=== PATIENT | female | born 1960 | race Caucasian/White ===

== ENCOUNTER 2018-09-05 13:31 | Emergency (ER) | payer SELFPAY ==
[~2018-09-05] VITALS: Ht 162.6 cm; Wt 70.0 kg
[2018-09-05 13:48] VITALS: Ht 162.6 cm; Wt 70.0 kg
[2018-09-05] MEDS ORDERED: ONDANSETRON 4 MG INJ IV STA (13:55)
[2018-09-05] MEDS ORDERED: MECLIZINE 12.5 MG TAB PO ONE ×2 (14:00→17:00)
[2018-09-05] MEDS ORDERED: SOD CHLORIDE 0.9% 1,000 ML IV STA (14:07)
--- NOTE | 2018-09-05 14:36 | ERD ---
ER Documentation Chief Complaint Chief Complaint BIB RA FOR EVAL OF N/V STARTED THIS AM. HPI This is a 57-year-old female who is here for vertigo and nausea vomiting. The patient states she had multiple episodes of this in the past. She states typically she gets very stressed out and then she will start getting vertigo with nausea vomiting. Denies any headache or focal neurological complaints. She says that she opens her eyes or moves her head it will induce a spinning sensation. No recent illness fever chest pain shortness of breath ROS All systems reviewed and are negative except as per history of present illness. Medications Home Meds Active Scripts Meclizine Hcl* (Antivert*) 12.5 Mg Tab, 25 MG PO Q6H PRN for DIZZINESS, #20 TAB Prov:JERSEY MATHUR DO 09/05/18 Allergies Allergies: Coded Allergies: No Known Allergy (Unverified , 09/05/18) PMhx/Soc Medical and Surgical Hx: pt denies Medical Hx, pt denies Surgical Hx Hx Alcohol Use: No Hx Substance Use: No Hx Tobacco Use: No Smoking Status: Never smoker FmHx Family History: No coronary disease Physical Exam Vitals Vital Signs Date Temp Pulse Resp B/P (MAP) Pulse Ox O2 O2 Flow FiO2 Time Delivery Rate 09/05/18 75 19 129/71 99 Room Air 16:00 (90) 09/05/18 97.3 77 16 133/84 99 13:48 (100) Physical Exam Const: Well-developed, well-nourished Head: Atraumatic, normocephalic Eyes: Normal Conjunctiva, PERRLA, EOMI, normal sclera, no nystagmus ENT: Normal External Ears, Nose and Mouth, moist mucus membranes. Neck: Full range of motion. No meningismus, no lymphadenopathy. Resp: Clear to auscultation bilaterally, no wheezing, rhonchi, rales Cardio: Regular rate and rhythm, no murmurs, S1 S2 present Abd: Soft, non tender x 4, non distended. Normal bowel sounds, no g uarding or rebound, no pulsitile abdominal masses or bruits Skin: No petechiae or rashes, no ecchymosis , no maculopapular rash Back: No midline or flank tenderness Ext: No cyanosis, or edema, FROM x 4, normal inspection, neurovascular ly intact x 4 Neur: Awake and alert, STR 5/5 x 4, sensation intact x 4, no focal findings, cerebellum intact, any movement of the head will induce severe vertigo Psych: Normal Mood and Affect Results 24 hrs Current Medications Medications Dose Sig/Steff Start Time Status Last (Trade) Ordered Route PRN Stop Time Admin Dose Reason Admin Ondansetron 4 mg ONCE STAT 09/05/18 DC 09/05/18 HCl (Zofran IV 13:55 09/05/18 14:05 Inj) 13:56 Meclizine 25 mg ONCE ONCE 09/05/18 DC 09/05/18 HCl PO 14:00 09/05/18 14:05 (Antivert) 14:01 Sodium 1,000 ml @ Q1H STAT 09/05/18 DC 09/05/18 Chloride 1,000 mls/hr IV 14:07 09/05/18 14:11 15:06 Diazepam 5 mg ONCE ONCE 09/05/18 DC 09/05/18 (Valium) IV 15:00 09/05/18 14:40 15:01 5 mg ONCE ONCE 09/05/18 DC 09/05/18 Metoclopramid IV 15:00 09/05/18 14:40 e HCl 15:01 (Reglan) Meclizine 25 mg ONCE ONCE 09/05/18 DC 09/05/18 HCl PO 17:00 09/05/18 17:10 (Antivert) 17:01 Diazepam 5 mg ONCE ONCE 09/05/18 DC 09/05/18 (Valium) IV 17:00 09/05/18 17:10 17:01 Procedures/MDM Ordering MD: JERSEY MATHUR DO Location: E/R Room/Bed: PROCEDURE: CT Brain without contrast CLINICAL INDICATION: Vertigo TECHNIQUE: A CT of the brain was performed on multidetector high-resolution CT scanner utilizing axial sections from the skull base through the vertex without contrast. The scan was reviewed in soft tissue brain and high frequency resolution bone algorithm windows. Images were reviewed on a high-resolution PACS workstation. DICOM images are available. CTDI (mGy): 39.62 mGy and DLP(mGy-cm): 634.23 mGy.cm One or more of the following dose reduction techniques were used: - Automated exposure control. - Adjustment of the mA and/or kV according to patient size. Use of iterative reconstruction technique. COMPARISON: None available FINDINGS: The ventricles and sulci are symmetric and normal in size and morphology. There is no evidence of intracranial hemorrhage, mass effect, edema or midline shift. No abnormal intra-axial or extra-axial fluid collections are seen. The density of the brain is normal and the adame/white matter differentiation is well preserved. Brainstem and posterior fossa structures are equally unremarkable. The osseous structures and visualized paranasal sinuses are unremarkable. The surrounding soft tissue scalp and bony calvarium are intact and normal. IMPRESSION: 1. No acute intracranial findings such as mass effect, midline shift, herniation or hemorrhage. 2. Preservation of the adame-white matter distinction. More subtle changes including early ischemia, vasogenic edema, or parenchymal lesions are better assessed by brain MR, which could be obtained as clinically appropriate. RPTAT: EE Kristian Gray Physician Specialty Trimmer Date Time Electronically viewed and signed by Kristian Gray Physician Specialty Trimmer on 09/05/2018 16:19 rP/ CC: JERSEY MATHUR DO [phone] After some rounds of Antivert and Valium the patient is feeling better. Will discharge home with Antivert. Her peripheral vertigo is what she is presenting with here today at this is a classic presentation will discharge home. Her symptoms did start suddenly and severely Departure Diagnosis: Primary Impression: Vertigo Condition: Stable JERSEY MATHUR DO Sep 05, 2018 14:36
[2018-09-05] MEDS ORDERED: METOCLOPRAMIDE 10 MG INJ IV ONE (15:00)
[2018-09-05] MEDS ORDERED: DIAZEPAM 5 MG/ML SYG IV ONE ×2 (15:00→17:00)
[2018-09-05] MEDS ORDERED: MECL12.574 PO (18:44)
[2018-09-05] MEDS ORDERED: ONDA4TAB14 PO (18:59)
[2018-09-05 19:01] VITALS: BP 130/80; PULSE 75; RESP 20
== END 2018-09-05 19:08 | disposition home or self-care (01) ==
LOC: E/R 13:31
DX: R42 Dizziness and giddiness (principal)
CPT/HCPCS: 70450; 96374; 96375; 96376; 99285; J2405; J2765; J3360; J7030